=== PATIENT | male | born 1965 | race Caucasian/White ===

== ENCOUNTER 2019-06-12 01:09 | Inpatient (IN) | payer OTHER ==
[~2019-06-12] VITALS: Ht 170.2 cm; Wt 87.5 kg
[2019-06-12 01:23] VITALS: BP 142/97
[2019-06-12] MEDS ORDERED: CARDIZEM SR 60M60 MG PO (01:28)
[2019-06-12] MEDS ORDERED: MICROZIDE12.5 MG PO (01:28)
[2019-06-12] MEDS ORDERED: ASA81BEC PO (01:28)
[2019-06-12] MEDS ORDERED: FLOMAX0.4 MG PO (01:28)
[2019-06-12 01:30] LABS: ABSOLUTE EOSINOPHILS 0.2 thou/uL (0.0-0.7); ABSOLUTE LYMPHOCYTES 2.1 thou/uL (0.8-5.3); ABSOLUTE MONOCYTES 0.7 thou/uL (0.0-1.2); ABSOLUTE NEUTROPHILS 3.3 thou/uL (1.6-8.1); BASOPHILS 0.7 %; EOSINOPHILS 3.5 %; HEMATOCRIT 39.4 % (42.0-52.0); HEMOGLOBIN 13.6 gm/dL (14.0-18.0); MCH 30.4 pg (26.0-34.0); MCHC 34.5 g/dL (28.0-37.0); MCV 88.2 fL (80.0-100.0); MONOCYTES 11.4 %; MPV 8.1 fl. (7.2-11.1); NUCLEATED RBCS 0 /100WBC; PLATELET COUNT* 256 thou/uL (150-400); POLYS 51.4 %; RBC 4.47 mil/uL (4.50-6.00); RDW-CV 13.3 % (10.5-14.5); WBC 6.5 thou/uL (4.0-11.0)
[2019-06-12 01:39] LABS: CALCIUM 8.5 mg/dL (8.5-10.1); POTASSIUM 3.7 mmol/L (3.5-5.1)
[2019-06-12 01:43] LABS: APTT 26.1 Seconds (25.0-31.3); PROTIME 9.9 Seconds (9.20-11.50)
[2019-06-12 01:53] LABS: ALBUMIN 3.5 g/dL (3.4-5.0); CK-MB MASS 1.2 ng/mL (<0.5-3.6); MAGNESIUM 1.9 mg/dL (1.8-2.4); TOTAL BILIRUBIN 0.2 mg/dL (<0.1-1.0); TOTAL PROTEIN 7.2 g/dL (6.4-8.2)
[2019-06-12] MEDS ORDERED: COUMADIN 2.5MG2.5 M1 PO (02:31)
[2019-06-12] MEDS ORDERED: PRILOSEC OTC20 MG PO (02:31)
[2019-06-12 06:33] VITALS: BP 142/74
[2019-06-12 18:40] VITALS: BP 108/56
--- NOTE | 2019-06-12 19:05 | NUR ---
RECEIVED REPORT FROM HAN BOONE. PT ARRIVED TO TELE FLOOR AROUND 1900. PT SETTELED IN BED AND ORIENTED TO ROOM, BED AND CALL LIGHT. FAMILY AT BEDSIDE AND ABOUT TO GO GET PT SOMETHING TO EAT. PT REPORTING NECK PAIN - WILL GIVE IV PAIN MEDICATION SOON HE CAN HAVE IT. CUSTOMER RESOLUTION SPECIALIST PLACED. CALL LIGHT IS WITHIN REACH. FALL PRECAUTIONS IN PLACE.
[2019-06-12 20:00] VITALS: BP 134/80; BP 138/74
[2019-06-13] VITALS: BP 115/68
[2019-06-13 04:00] VITALS: BP 107/67
--- NOTE | 2019-06-13 04:31 | NUR ---
ASSUMED PT CARE AT APPROX 1930. PT IS AWAKE AND ORIENTED X4. VSS ON ROOM AIR. STARS COORDINATOR IN PLACE TRACING SR.PT DENIES CHEST PAIN BUT IS COMPLAINING OF NECK PAIN-PAIN MEDS GIVEN PER MAR. PT IS ABLE TO SLEEP MOST OF THE NIGHT. HIGH FALL PRECAUTIONS IN PLACE. CALL LIGHT WITHIN REACH. HOURLY ROUNDING DONE FOR PT SAFETY.
[2019-06-13 08:00] VITALS: BP 134/85
--- NOTE | 2019-06-13 10:25 | CON ---
[address] [address] CONSULTATION Name: RYANN IRVING Room: [place] [address] ADM IN M.R.#: [id number] Admission: 06/12/19 Attend Phys: Rhonda Cobb Discharge: Date of : 63 Report #: [id number] THIS REPORT FOR: //name// CC: Rhonda Nance DATE OF SERVICE: 06/12/2019 INDICATION: Syncope. HISTORY OF PRESENT ILLNESS: The patient is a very pleasant 54-year-old gentleman with recently diagnosed coronary artery disease. He reports percutaneous coronary intervention with stent placement x 2 in 2017. The patient had been having multiple syncopal episodes, prompting outside devops consultant to evaluate further with tilt table testing and event monitoring. Ultimately, he apparently had an ICD placed. This apparently became infected and was removed. The patient has not had a subsequent ICD placed. He does have a BioMonitor [address] Evaluation of the loop monitor shows several episodes of an irregular tachyarrhythmia lasting up to a minute and a half. The patient reports yesterday having an episode where he began to feel lightheaded, dizzy, blurry vision, and then passed out. He had some slight chest discomfort with this. At the time of my interview, he is stable. He reports having multiple syncopal episodes over the last several months. Cardiac enzymes are unremarkable. EKG shows a sinus rhythm without acute ST or T-wave abnormality. Telemetry monitoring shows sinus rhythm with occasional PACs. PAST MEDICAL HISTORY: 1. Paroxysmal atrial fibrillation per the patient's report. 2. Coronary artery disease. 3. Hypertension. 4. Remote transient ischemic attack. 5. GERD. 6. Cardiac stents placed as outlined above. 7. ICD placement with subsequent removal for infection. FAMILY HISTORY: Noncontributory. SOCIAL HISTORY: The patient denies use of tobacco or alcohol. CURRENT MEDICATIONS: Aspirin 81 mg daily, metoprolol 25 mg daily, Flomax 0.4 mg at bedtime, and warfarin as directed for INR. PHYSICAL EXAMINATION: [place] [address] CONSULTATION Name: RYANN IRVING Room: [address] IN [facility]#: [id number] Admission: 06/12/19 Attend Phys: Rhonda Cobb Discharge: Date of : 63 Report #: [id number] VITAL SIGNS: Stable. Blood pressure is 134/73, pulse is 70 and regular. GENERAL: This is a pleasant gentleman in no distress. Mood and affect appropriate. HEENT: Extraocular muscles intact. Mucous membranes are moist. NECK: Shows no jugular venous distention. There are no carotid bruits. CHEST: Reveals clear lung temple without wheezes or rales. CARDIOVASCULAR: Reveals a regular rhythm with normal S1 and S2. I do not appreciate gallop or murmur. ABDOMEN: Reveals normal bowel sounds. The abdomen is soft and nontender. EXTREMITIES: Shows no edema. Peripheral pulses are 2+ and palpable. SKIN: Warm and dry. LABORATORY DATA: A 12-lead EKG shows sinus rhythm without acute ST or T-wave abnormality. Labs are reviewed. Electrolytes are within normal limits. Troponins are less than 0.06 on 3 separate occasions. NT-proBNP is 70. Chest x-ray shows no acute cardiopulmonary abnormality. IMPRESSION AND RECOMMENDATIONS: 1. Syncope, likely due to cardiac dysrhythmia. We will admit for telemetry monitoring and further cardiac workup including echocardiogram. The patient had had an ICD in place in the past. He may be a candidate for replacement of ICD. We will confer with electrophysiology. 2. Coronary artery disease, presently appears stable. His enzymes are unremarkable. He is not having any symptoms to suggest angina. 3. Possible dyslipidemia. We will check fasting lipid profile. 4. History of hypertension. Blood pressure appears adequately controlled on metoprolol alone at this time. We will follow. <ELECTRONICALLY SIGNED> By: Edwin Nair MD, FACC 06/13/19 1025 1348 [id number] Nair MD, FACC /nt
--- NOTE | 2019-06-13 12:28 | EKG ---
[place] [address] ELECTROCARDIOGRAM REPORT Name: RYANN IRVING Room: [place] [address] ADM IN M.R.#: [id number] Admission: 06/12/19 Attend Phys: Rhonda Cobb Discharge: Date of : 63 Report #: [id number] THIS REPORT FOR: //name// [facility] ED Test Date: 2019-06-12 Test Time: 01:11:41 Pat Name: RYANN IRVING Department: Room: [facility] Gender: M Sports Management Professor: : 1965 Requested By: Chris Marin Order Number: [id number] MD: Gualberto Munguia Measurements Intervals [place] Rate: 81 P: 76 WV: 173 QRS: 59 QRSD: 100 T: 41 QT: 381 QTc: 443 Interpretive Statements Sinus rhythm Atrial premature complex RSR' in V1 or V2, right VCD No previous ECG available for comparison Electronically Signed On 06-13-2019 12:27:37 BAKED GOODS STOCK CLERK by Gualberto Munguia [email or web address] <ELECTRONICALLY SIGNED> By: Gualberto Munguia MD, [facility] 06/13/19 1227 0 0 Gualberto Munguia MD, FACC /EPI
[2019-06-13 12:33] VITALS: BP 127/84
--- NOTE | 2019-06-13 14:09 | NUR ---
MET WITH PT TO DISCUSS HOME SITUATION/DC PLANNING. PT LIVES WITH FRIEND, WORKS AND IS INDEPENDENT AND ACTIVE. HE USES NO EQUIPMENT. FAXED COPY OF MEDICAID CARD TO [employer], IT HAS LAPSED. HAVE ASKED [facility] TO SEE PT. HIS PRIMARY INSURANCE IS PENDING A CARD BEING BROUGHT IN BY FRIEND. PT DENIES NEEDS
--- NOTE | 2019-06-13 15:10 | 2DMMODE ---
[place] [address] 2 D/M-MODE ECHOCARDIOGRAM Name: RYANN IRVING Room: [place] [address] ADM IN M.R.#: [id number] Admission: 06/12/19 Attend Phys: Rhonda freire Sa Discharge: Date of : 63 Date of Service: 06/13/19 1510 Report #: [id number] THIS REPORT FOR: //name// APPROVED REPORT Study performed: 06/13/2019 11:20:18 EXAM: Comprehensive 2D, Doppler, and color-flow Echocardiogram Patient Location: Bedside BSA: 1.91 HR: 77 bpm BP: 107/67 mmHg Other Information Study Quality: Good Indications Arrhythmia Chest Pain Left Ventricle The left ventricle is normal size. There is normal LV segmental wall motion. There is normal left ventricular wall thickness. Left ventricular systolic function is normal. LVEF is 55-60%. The left ventricular diastolic function is normal. Right Ventricle The right ventricle is normal size. The right ventricular systolic function is normal. Atria The left atrium size is normal. The right atrium size is normal. Aortic Valve The aortic valve is normal in structure. No aortic regurgitation is present. There is no aortic valvular stenosis. Mitral Valve The mitral valve is normal in structure. Trace mitral regurgitation. No evidence of mitral valve stenosis. Tricuspid Valve The tricuspid valve is normal in structure[place] [address] 2 D/M-MODE ECHOCARDIOGRAM Name: RYANN IRVING Room: [address] IN M.R.#: [id number] Admission: 06/12/19 Attend Phys: Rhonda freire Sa Discharge: Date of : 63 Date of Service: 06/13/191509 Report #: [id number] regurgitation. No pulmonary hypertension. Pulmonic Valve The pulmonary valve is normal in structure. Mild pulmonic regurgitation. Great Vessels The aortic root is normal in size. IVC is normal in size and collapses >50% with inspiration. Pericardium There is no pericardial effusion. <Conclusion> The left ventricle is normal size. There is normal left ventricular wall thickness. Left ventricular systolic function is normal. LVEF is 55-60%. The left ventricular diastolic function is normal. Trace mitral regurgitation. Trace tricuspid regurgitation. No pulmonary hypertension. Mild pulmonic regurgitation. IVC is normal in size and collapses >50% with inspiration. <ELECTRONICALLY SIGNED> By: Edwin Nair MD, [facility] 06/13/191509 09 Edwin Nair MD, FACC /INF
[2019-06-13 16:00] VITALS: BP 118/74
--- NOTE | 2019-06-13 19:02 | NUR ---
ASSUMED PT CARE AT 0730. ASSESSMENT COMPLETED CHARTED. ABLE TO MAKE NEEDS KNOWN. UP WITH SBA. IV FLUIDS RUNNING PER EMAR. C/O NECK PAIN AND GAVE PRN PAIN MEDICATION. PT RESTING IN BED MOST OF THE DAY. WILL CONTINUE TO MONITOR.
[2019-06-13 20:00] VITALS: BP 143/97
[2019-06-14 00:38] VITALS: BP 116/67
[2019-06-14 04:00] VITALS: BP 131/63
--- NOTE | 2019-06-14 05:05 | NUR ---
ASSUMED PT CARE AT APPROX 1930. PT IS AWAKE AND ORIENTED X4. VSS ON ROOM AIR. ANESTHESIOLOGY PHYSICIAN ASSISTANT IN PLACE TRACING SR/SA w/ OCCASIONAL PACs. ASSESSMENT DONE AND CHARTED. PT C/O NECK PAIN RELIEVED BY PAIN MEDS GIVEN PER AUG. PT IS ABLE TO SLEEP MOST OF THE NIGHT. CALL LIGHT WITHIN REACH. HIGH FALL PRECAUTIONS IN PLACE. HOURLY ROUNDING DONE FOR PT SAFETY.
[2019-06-14 06:18] LABS: CHOLESTEROL 216 mg/dL (<200); HDL CHOLESTEROL 43 mg/dL (>40); LDL CHOLESTEROL 156 mg/dL (<100); TRIGLYCERIDE 87 mg/dL (<150); VLDL 17 mg/dL (<40)
[2019-06-14 06:19] LABS: SERUM ASSESSMENT Clear
[2019-06-14 08:00] VITALS: BP 134/95
[2019-06-14 13:00] VITALS: BP 134/95
[2019-06-14 14:49] VITALS: BP 134/95
[2019-06-14 16:04] LABS: AMP/METHAMP Negative (Negative); BARBITURATES Negative (Negative); BENZODIAZEPINES Negative (Negative); COCAINE Negative (Negative); METHADONE Negative (Negative); OPIATES POSITIVE (Negative); PCP Negative (Negative); THC Negative (Negative)
[2019-06-14 16:31] VITALS: BP 142/79
--- NOTE | 2019-06-14 18:26 | NUR ---
ASSUMED PT CARE AT 0730. ASSESSMENT COMPLETED CHARTED. ABLE TO MAKE NEEDS KNOWN. C/O NECK PAIN AND GAVE PRN PAIN MEDICATION PER EMAR. UP AD AUBREE IN ROOM. RESTING IN BED MOST OF THE DAY. DISCHARGE APPROVED. DISCHARGE PAPERWORK WENT OVER WITH PT, TOOK HEART MONITOR AND IV OUT. HAD QUESTIONS ABOUT IF HE PASSED OUT AGAIN, DR. SAWANT TALKED TO PT BEFORE HE LEFT. PT LEFT WITH FRIEND AND MATHEMATICS FACULTY MEMBER AROUND 1827 TO FRIENDS CAR. NO FURTHER COMMENTS, QUESTIONS OR CONCERNS.
== END 2019-06-14 18:40 | disposition home or self-care (01) | DRG 310 ==
LOC: M.ERS 01:09 → M.2W 03:38 → M.TBA-ER 03:38 → M.2W 19:00
PROVIDERS: Family Medicine; Internal Medicine; Internal Medicine Cardiovascular Disease; ADMIT Family Medicine
DX: I48.0 Paroxysmal atrial fibrillation (principal); I25.10 Atherosclerotic heart disease of native coronary artery without angina pectoris; I10 Essential (primary) hypertension; K21.9 Gastro-esophageal reflux disease without esophagitis; S13.4XXA Sprain of ligaments of cervical spine, initial encounter; S16.1XXA Strain of muscle, fascia and tendon at neck level, initial encounter; N40.1 Benign prostatic hyperplasia with lower urinary tract symptoms; Z86.73 Personal history of transient ischemic attack (TIA), and cerebral infarction without residual deficits; Z95.5 Presence of coronary angioplasty implant and graft; Z95.0 Presence of cardiac pacemaker; X58.XXXA Exposure to other specified factors, initial encounter; Y93.89 Activity, other specified; Y92.89 Other specified places as the place of occurrence of the external cause; Y99.8 Other external cause status

== ENCOUNTER 2019-06-16 13:23 | Emergency (ER) | payer OTHER ==
[~2019-06-16] VITALS: Ht 172.7 cm; Wt 83.9 kg
[~2019-06-16 13:23] MED LIST: ASA81BEC PO; CARDIZEM SR 60M60 MG PO; COUMADIN 2.5MG2.5 M1 PO; FLOMAX0.4 MG PO; MICROZIDE12.5 MG PO; PRILOSEC OTC20 MG PO
[2019-06-16 14:44] LABS: ABSOLUTE BASOPHILS 0.1 thou/uL (0.0-0.2); ABSOLUTE EOSINOPHILS 0.2 thou/uL (0.0-0.7); ABSOLUTE LYMPHOCYTES 1.6 thou/uL (0.8-5.3); ABSOLUTE MONOCYTES 0.7 thou/uL (0.0-1.2); ABSOLUTE NEUTROPHILS 4.8 thou/uL (1.6-8.1); BASOPHILS 1.1 %; EOSINOPHILS 2.1 %; HEMATOCRIT 42.5 % (42.0-52.0); HEMOGLOBIN 14.5 gm/dL (14.0-18.0); LYMPHOCYTES 21.8 %; MCH 30.2 pg (26.0-34.0); MCHC 34.1 g/dL (28.0-37.0); MCV 88.4 fL (80.0-100.0); MONOCYTES 9.7 %; MPV 8.3 fl. (7.2-11.1); NUCLEATED RBCS 0 /100WBC; PLATELET COUNT* 302 thou/uL (150-400); POLYS 65.3 %; RBC 4.81 mil/uL (4.50-6.00); RDW-CV 13.1 % (10.5-14.5); WBC 7.3 thou/uL (4.0-11.0)
[2019-06-16 14:54] LABS: CALCIUM 8.6 mg/dL (8.5-10.1)
[2019-06-16 14:55] LABS: APTT 27.6 Seconds (25.0-31.3); PROTIME 10.3 Seconds (9.20-11.50)
[2019-06-16 14:59] LABS: ALBUMIN 3.9 g/dL (3.4-5.0); TOTAL BILIRUBIN 0.3 mg/dL (<0.1-1.0)
[2019-06-16 15:15] VITALS: BP 123/79
--- NOTE | 2019-06-17 15:16 | EKG ---
[place] [address] ELECTROCARDIOGRAM REPORT Name: RYANN IRVING JR Room: [facility]#: [id number] Admission: 06/16/19 Attend Phys: Discharge: 06/16/19 Date of : 63 Report #: [id number] THIS REPORT FOR: //name// [facility] ED Test Date: 2019-06-16 Test Time: 13:31:49 Pat Name: RYANN IRVING Department: Room: Gender: M Real Estate Developer: JEN : 1965 Requested By: Chris Marin Order Number: [id number] MD: Meek Whittaker Measurements Intervals [place] Rate: 74 P: 51 [place]: 188 QRS: 18 QRSD: 85 T: 59 QT: 386 QTc: 429 Interpretive Statements Sinus rhythm Left atrial enlargement RSR' in V1 or V2, right VCD or RVH Compared to ECG 06/12/2019 01:11:41 Atrial abnormality now present Atrial premature complex(es) no longer present Electronically Signed On 06-17-2019 15:15:52 LEADERSHIP PROGRAM INTERN by Meek Whittaker [email or web address] <ELECTRONICALLY SIGNED> By: Meek Whittaker MD, [facility] 06/17/19 1515 1331 1331 Meek Whittaker MD, [facility] /EPI
== END 2019-06-16 15:18 | disposition home or self-care (01) ==
LOC: M.ERS 13:23
PROVIDERS: Family Medicine
DX: R55 Syncope and collapse (principal); I10 Essential (primary) hypertension; I25.10 Atherosclerotic heart disease of native coronary artery without angina pectoris; K21.9 Gastro-esophageal reflux disease without esophagitis; I48.91 Unspecified atrial fibrillation; Z86.73 Personal history of transient ischemic attack (TIA), and cerebral infarction without residual deficits

== ENCOUNTER 2019-06-29 00:20 | Emergency (ER) | payer OTHER ==
[~2019-06-29] VITALS: Ht 172.7 cm; Wt 83.9 kg
[2019-06-29] MEDS ORDERED: LIPITOR40 MG PO (00:50)
[2019-06-29] MEDS ORDERED: PACERONE200 MG PO (00:50)
[2019-06-29 01:25] LABS: ABSOLUTE EOSINOPHILS 0.2 thou/uL (0.0-0.7); ABSOLUTE MONOCYTES 0.7 thou/uL (0.0-1.2); ABSOLUTE NEUTROPHILS 4.4 thou/uL (1.6-8.1); BASOPHILS 0.6 %; EOSINOPHILS 2.5 %; HEMATOCRIT 41.9 % (42.0-52.0); HEMOGLOBIN 14.3 gm/dL (14.0-18.0); LYMPHOCYTES 27.1 %; MCH 30.1 pg (26.0-34.0); MCHC 34.1 g/dL (28.0-37.0); MCV 88.4 fL (80.0-100.0); MONOCYTES 9.6 %; MPV 8.8 fl. (7.2-11.1); NUCLEATED RBCS 0 /100WBC; PLATELET COUNT* 305 thou/uL (150-400); POLYS 60.2 %; RBC 4.74 mil/uL (4.50-6.00); RDW-CV 13.3 % (10.5-14.5); WBC 7.3 thou/uL (4.0-11.0)
[2019-06-29] MEDS ORDERED: COUMADIN 5 MG TA5 M1 PO (01:28)
[2019-06-29 01:44] LABS: CREATININE 1.2 mg/dL (0.6-1.3)
[2019-06-29 01:56] LABS: TOTAL BILIRUBIN 0.2 mg/dL (<0.1-1.0); TOTAL PROTEIN 7.5 g/dL (6.4-8.2)
[2019-06-29 02:04] LABS: APTT 28.5 Seconds (25.0-31.3); PROTIME 10.1 Seconds (9.20-11.50)
[2019-06-29 03:30] VITALS: BP 159/93
--- NOTE | 2019-07-01 14:11 | EKG ---
[place] [address] ELECTROCARDIOGRAM REPORT Name: RYANN IRVING Room: [facility]#: [id number] Admission: 06/29/19 Attend Phys: Discharge: 06/29/19 Date of : 63 Report #: [id number] THIS REPORT FOR: //name// [facility] ED Test Date: 2019-06-29 Test Time: 00:23:46 Pat Name: RYANN IRVING Department: Room: Gender: M Agile Qa Tester: CASSY : 1965 Requested By: Virgie Davison Order Number: [id number] MD: Meek Whittaker Measurements Intervals [place] Rate: 71 P: 68 SD: 194 QRS: 10 QRSD: 101 T: 55 QT: 390 QTc: 424 Interpretive Statements Sinus rhythm Probable left atrial enlargement RSR' in V1 or V2, right VCD or RVH Baseline wander in lead(s) V3 Compared to ECG 06/16/2019 13:31:49 No significant changes Electronically Signed On 07-01-2019 14:10:27 BLACKTOP SPREADER by Meek Whittaker [email or web address] <ELECTRONICALLY SIGNED> By: Meek Whittaker MD, [facility] 07/01/19 1410 0023 0023 Meek Whittaker MD, [facility] /EPI
== END 2019-06-29 03:30 | disposition home or self-care (01) ==
LOC: M.ERS 00:20
PROVIDERS: Personal Emergency Response Attendant
DX: I49.9 Cardiac arrhythmia, unspecified (principal); F41.9 Anxiety disorder, unspecified; R11.2 Nausea with vomiting, unspecified; I10 Essential (primary) hypertension; I48.91 Unspecified atrial fibrillation; K21.9 Gastro-esophageal reflux disease without esophagitis; I25.10 Atherosclerotic heart disease of native coronary artery without angina pectoris; Z86.73 Personal history of transient ischemic attack (TIA), and cerebral infarction without residual deficits; Z95.0 Presence of cardiac pacemaker

== ENCOUNTER 2019-10-13 17:01 | Inpatient (IN) | payer OTHER ==
[~2019-10-13] VITALS: Ht 172.7 cm; Wt 89.4 kg
[~2019-10-13 17:01] MED LIST changes: +COUMADIN 5 MG TA5 M1 PO; +LIPITOR40 MG PO; +PACERONE200 MG PO
[2019-10-13 17:02] VITALS: BP 182/117
[2019-10-13] MEDS ORDERED: LIPITOR 20 MG T20 M1 PO (17:10)
[2019-10-13] MEDS ORDERED: OMEPRAZOLE40 MG PO (17:11)
[2019-10-13] MEDS ORDERED: ASA81BEC PO (17:11)
[2019-10-13 17:43] LABS: ABSOLUTE EOSINOPHILS 0.2 thou/uL (0.0-0.7); ABSOLUTE LYMPHOCYTES 1.8 thou/uL (0.8-5.3); ABSOLUTE MONOCYTES 0.6 thou/uL (0.0-1.2); ABSOLUTE NEUTROPHILS 2.7 thou/uL (1.6-8.1); BASOPHILS 0.6 %; EOSINOPHILS 3.1 %; HEMATOCRIT 41.2 % (42.0-52.0); HEMOGLOBIN 13.9 gm/dL (14.0-18.0); LYMPHOCYTES 34.2 %; MCH 30.8 pg (26.0-34.0); MCHC 33.7 g/dL (28.0-37.0); MCV 91.4 fL (80.0-100.0); MONOCYTES 11.7 %; MPV 8.4 fl. (7.2-11.1); NUCLEATED RBCS 0 /100WBC; PLATELET COUNT* 234 thou/uL (150-400); POLYS 50.4 %; RBC 4.51 mil/uL (4.50-6.00); WBC 5.4 thou/uL (4.0-11.0)
[2019-10-13 17:59] LABS: CALCIUM 7.9 mg/dL (8.5-10.1); CREATININE 0.8 mg/dL (0.6-1.3)
[2019-10-13 18:00] LABS: ALBUMIN 3.5 g/dL (3.4-5.0); MAGNESIUM 1.7 mg/dL (1.8-2.4); TOTAL BILIRUBIN 0.3 mg/dL (<0.1-1.0); TOTAL PROTEIN 6.9 g/dL (6.4-8.2)
[2019-10-13 18:16] LABS: PROTIME 10.4 Seconds (9.20-11.50)
[2019-10-13 20:30] VITALS: BP 146/89
[2019-10-13 20:31] VITALS: BP 159/94
[2019-10-13] MEDS ORDERED: FLUDROCORTISON0.1 MG PO (21:03)
[2019-10-14] VITALS (16 sets, daily range): BP systolic 93–134; BP diastolic 55–84
--- NOTE | 2019-10-14 05:54 | NUR ---
PT ADMITTED TO FLOOR AT 2014. PT HAD REPORTED PAIN OF 8/10 ON ASSESSMENT, WITH PARTIAL RELIEF WITH PRN PAIN MEDICATIONS. PAIN MEDICATIONS REQUIRED Q4H TO CONTROL PAIN. ASSESSMENTS COMPLETED AT BEDSIDE, MEDICATIONS ADMINISTERED PER MAR. HOURLY ROUNDING FOR SAFETY, CURRENTLY IN BED WITH BED ALARM ON AND CALL LIGHT WITH REACH.
--- NOTE | 2019-10-14 10:41 | EKG ---
[place] [address] ELECTROCARDIOGRAM REPORT Name: RYANN IRVING Room: [address] ADM IN .R.#: [id number] Admission: 10/13/19 Attend Phys: Juan F Hightower, Discharge: Date of : 63 Date of Service: 10/13/19 1706 Report #: [id number] THIS REPORT FOR: //name// [facility] ED Test Date: 2019-10-13 Test Time: 17:06:47 Pat Name: RYANN IRVING Department: Room: [facility] Gender: M Captain/Airline Pilot: VIGNESH : 1965 Requested By: Shailesh Flowers Order Number: [id number] MD: Meek Whittaker Measurements Intervals [place] Rate: 63 P: 37 DC: 176 QRS: 29 QRSD: 105 T: 30 QT: 411 QTc: 421 Interpretive Statements Sinus rhythm RSR' in V1 or V2, right VCD or RVH Baseline wander in lead(s) V1 Compared to ECG 06/29/2019 00:23:46 No significant changes Electronically Signed On 10-14-2019 10:39:19 CDT by Meek Whittaker [email or web address] <ELECTRONICALLY SIGNED> By: Meek Whittaker MD, FAC 10/14/19 1039 1706 1706 Meek Whittaker MD, FAC /EPI
[2019-10-14] MEDS ORDERED: PACERONE200 MG PO (11:10)
[2019-10-14] MEDS ORDERED: COUMADIN 5 MG TA5 M1 PO (11:19)
[2019-10-14] MEDS ORDERED: ADVIL200 M3 PO (11:23)
[2019-10-14] MEDS ORDERED: NORCO 10-325 T1 EACH PO (13:04)
--- NOTE | 2019-10-14 15:44 | CON ---
[address] [address] CONSULTATION Name: MARIA FERNANDARYANN Riley Room: [address] IN .R.#: [id number] Admission: 10/13/19 Attend Phys: Juan F Hightower MD Discharge: Date of : 63 Report #: [id number] THIS REPORT FOR: //name// cc: PALMIRA Childers family physician/PCP PALMIRA - Liseth family physician/PCP ~ THIS REPORT FOR: //name// CC: PALMIRA physician/PCP Juan F Hightower DATE OF SERVICE: 10/14/2019 CARDIOLOGY CONSULTATION HISTORY OF PRESENT ILLNESS: The patient is a 54-year-old single white male who I was asked to see in the hospital today after he complained of chest pain. The patient has an extensive and complicated past medical history. He has had many years of syncope. He apparently had a loop recorder placed in [place], [place] 3 years ago. He states he had a tilt table test at that time. He has no history of coronary artery disease, although he has had previous stress test. There is no history of seizures. He actually saw my partner, Dr. Quiñonez in the past. He was referred to Dr. Barber in the [facility]. Recently, he has been having intermittent chest pain. Describes a sharp pain in his chest. It is not related to exertion or meals. He denied any fever, cough or bleeding. He does become diaphoretic and nauseated. Denies any shortness of breath and edema. Two days ago, he was at home when he had a brief syncopal spell lasted about 2 minutes. Yesterday, he again had a syncopal spell at home. He was taken to [facility] and transferred to [place] yesterday by ambulance. I was asked to see him for further evaluation and treatment. PAST MEDICAL HISTORY: He has had lithotripsy for kidney stones. He has a history of hypertension, hyperlipidemia, and has a history of paroxysmal atrial fibrillation, although apparently has never been cardioverted in the past. MEDICATIONS: Include aspirin, diltiazem, HCTZ, Prilosec, Flomax, warfarin, amiodarone, and Lipitor. ALLERGIES: He has no known drug allergies. FAMILY HISTORY: His father had heart attack. SOCIAL HISTORY: He is single, never been and lives with a sister in [place], [place]. Works on a farm. No smoking or alcohol abuse. No illicit drug use. REVIEW OF SYSTEMS: He has had no history of stroke. [place] [address] CONSULTATION Name: MARIA FERNANDARYANN Osvaldo MIR Room: [address] IN [facility].#: [id number] Admission: 10/13/19 Attend Phys: Juan F Hightower MD Discharge: Date of : 63 Report #: [id number] past. No history of asthma, liver disease, kidney disease, cancer, psychiatric illness or chronic skin condition. PHYSICAL EXAMINATION: GENERAL: Revealed a middle-aged female, appeared in no distress. VITAL SIGNS: He has a blood pressure of 120/70, pulse of 60, and he is afebrile. HEENT: He was anicteric. Conjunctivae pink. Mucous membranes moist. NECK: Veins nondistended. No carotid bruits. Neck supple. CHEST: Clear to auscultation. CARDIOVASCULAR: Regular rate and rhythm. ABDOMEN: Soft. EXTREMITIES: Had no edema. SKIN: Warm and dry. NEUROLOGIC: Nonfocal. RADIOLOGICAL DATA: His ECG on admission showed a sinus rhythm, incomplete right bundle branch block, no acute changes. His workup, he had an echocardiogram in June of this year that showed normal heart size with an ejection fraction of 60%. Yesterday in the Emergency Room, he had a head CT scan without contrast that showed no acute abnormality. Chest x-ray on admission yesterday showed normal heart size, clear lung temple. LABORATORY WORK: Sodium 140, potassium 4.0, and creatinine 0.8. His liver function studies were normal. Troponin 0.06. BNP 51. In June, cholesterol 216, triglyceride 87, HDL 43, and LDL 156. His white blood cell count 5.4 and hemoglobin 13.9. His INR yesterday was 1.0. IMPRESSION AND RECOMMENDATIONS: 1. Chest pain. Recommend cardiac catheterization. 2. History of atrial fibrillation. I would hold warfarin at this time. The patient is on amiodarone. 3. Syncope. Possible vasovagal syncope. The patient has a loop recorder in place. No arrhythmias noted. 4. Hypertension. The patient is on a calcium barbra and diuretic. 5. Hyperlipidemia. The patient is on a statin drug. 6. Previous history of kidney stones. 7. History of transient ischemic attack. Possibly related to atrial fibrillation. <ELECTRONICALLY SIGNED> By: Meek Whittaker MD, FACC 10/14/19 1544 0840 0915Daleon Whittaker MD, FACC /nt
--- NOTE | 2019-10-14 16:00 | NUR ---
PATIENT NPO THIS AM FOR CARDIOLOGY. CARDIAC CATH DONE THIS AFTERNOON. VITALS STABLE CHARTED. PATIENT GIVEN NORCO X 1 AND MORPHINE X 1. RIGHT WRIST SITE REMAINS DRY, NO HEMATOMA OR BLEEDING NOTED. PATIENT REMAINED WITH GOOD CAP REFILL. PATIENT GIVEN DISCHARGED ORDERS, VERBALIZES UNDERSTANDING OF PAPERWORK AND SCRIPTS. PATIENT TAKEN OUT VIA WHEELCHAIR WITH ALL BELONGINGS.
--- NOTE | 2019-10-14 16:20 | CARD ---
[address] [address] CARDIAC CATH REPORT Name: RYANN IRVING Osvaldo MIR Room: [address]#: [id number] Admission: 10/13/19 Attend Phys: Juan F Hightower MD Discharge: 10/14/19 Date of : 63 Report #: [id number] THIS REPORT FOR: //name// cc: PALMIRA Whitman No family physician/PCP PALMIRA Childers family physician/PCP ~ APPROVED REPORT Study performed: 10/14/2019 08:42:40 Patient Details Patient Status: In-Patient Room #: The patient is a 54 year-old male Event Personnel Meek Whittaker Outside Plant Supervisor, Wesley Olivera RN Biomaterials Engineer, Michael Lucas RTR Scrub, Jo-Ann Delgado RTR Monitor Procedures Performed cardiac cathArt Access - R femoral artery, Left Heart Cath w/or w/o Coronaries LHC, Hemostasis with Hemoband Indication Syncope, Chest pain Risk Factors Hypertension Admission/Lab Medications/Medications given during procedure Oxygen Nasal cannula 2 l per min, Lidocaine Subcut 6 ml, Nitroglycerin IA 400 mcg, Verapamil IA 5 mg, Heparin IV 4400 units Procedure Narrative The patient was brought electively to the Cardiac Catheterization Laboratory and was prepped and draped in a sterile manner. The right wrist was infiltrated with 2% Lidocaine subcutaneous anesthesia. A 6F sheath was inserted into the right radial artery. Coronary angiography was performed using coronary diagnostic catheters. The right coronary system was accessed and visualized with a 6F JR4 catheter. The left coronary system was accessed and visualized with a 6F JL4 catheter. The left ventricle was accessed and visualized with a 6F Pigtail catheter. Left ventricular/Aortic Valve gradient assessed via catheter pullback. Left ventriculogram was performed in [place] projection. Closure device was deployed with a 6 [place] 24 [place] [address] CARDIAC CATH REPORT Name: RYANN IRVING JR Room: [address]#: [id number] Admission: 10/13/19 Attend Phys: Juan F Hightower MD Discharge: 10/14/19 Date of : 63 Report #: [id number] [facility]. The patient tolerated the procedure well and there were no complications associated with the procedure. There was no hematoma. Intraoperative Conscious Sedation Sedation start time: 09:52 Case end Time: 10:16 Fentanyl 25 mcg Versed 2 mg Fluoro Time: 3.9 minutes Dose: DAP 27646 cGycm2 746 mGy Contrast Type and Amount: Visipaque 100 ml Coronary Angiography The patient's coronary anatomy is left dominant. [place] Artery Percent Stenosis Left Main: 0 % Prox LAD: 0 % Mid/Distal LAD: 30 % Circumflex: 0 % RCA: 0 % Ramus: 0 % Left Ventriculography The left ventricular ejection fraction is estimated to be 60-65%. Left ventricular wall motion abnormalities are not present. There is no mitral insufficiency. Hemodynamics The aortic pressure is 123/79 mmHg with a mean of 99 mmHg. The left ventricular pressure is 123/3 mmHg with a mean of mmHg. The left ventricular end diastolic pressure is 17 mmHg. There was no gradient across the aortic valve upon pullback. Pullback from the left ventricle to the aorta revealed no gradient across the aortic valve. Conclusion 1. no significant cad noted 2. LVEF 60-65% 3. suspect noncardiac chest pain Recommendations Aggressive Medical Therapy <ELECTRONICALLY SIGNED> By: Meek Whittaker MD, FACC 10/14/19 1618 1618 1618Daleon Whittaker MD, FACC /INF
== END 2019-10-14 16:00 | disposition home or self-care (01) | DRG 206 ==
LOC: M.ERS 17:01 → M.2W 18:40 → M.TBA-ER 18:40 → M.2W 19:34
PROVIDERS: Emergency Medicine Emergency Medical Services; ADMIT Internal Medicine
PROC: B211YZZ Fluoroscopy of Multiple Coronary Arteries using Other Contrast (ICD-10-PCS; principal; 2019-10-14)
PROC: B215YZZ Fluoroscopy of Left Heart using Other Contrast (ICD-10-PCS; principal; 2019-10-14)
PROC: 4A023N7 Measurement of Cardiac Sampling and Pressure, Left Heart, Percutaneous Approach (ICD-10-PCS; principal; 2019-10-14)
DX: M94.0 Chondrocostal junction syndrome [Tietze] (principal); R55 Syncope and collapse; I10 Essential (primary) hypertension; K21.9 Gastro-esophageal reflux disease without esophagitis; I25.10 Atherosclerotic heart disease of native coronary artery without angina pectoris; E78.5 Hyperlipidemia, unspecified; F41.9 Anxiety disorder, unspecified; I48.0 Paroxysmal atrial fibrillation; Z95.0 Presence of cardiac pacemaker; Z88.8 Allergy status to other drugs, medicaments and biological substances; Z79.82 Long term (current) use of aspirin; I25.2 Old myocardial infarction; Z79.01 Long term (current) use of anticoagulants; Z86.73 Personal history of transient ischemic attack (TIA), and cerebral infarction without residual deficits

== ENCOUNTER 2020-06-22 23:31 | Emergency (ER) | payer OTHER ==
[~2020-06-22] VITALS: Ht 172.7 cm; Wt 83.9 kg
[~2020-06-22 23:31] MED LIST changes: +ADVIL200 M3 PO; +FLUDROCORTISON0.1 MG PO; +LIPITOR 20 MG T20 M1 PO; +NORCO 10-325 T1 EACH PO; +OMEPRAZOLE40 MG PO
[2020-06-23 00:37] LABS: ABSOLUTE BASOPHILS 0.1 thou/uL (0.0-0.2); ABSOLUTE EOSINOPHILS 0.1 thou/uL (0.0-0.7); ABSOLUTE LYMPHOCYTES 1.8 thou/uL (0.8-5.3); ABSOLUTE MONOCYTES 0.6 thou/uL (0.0-1.2); ABSOLUTE NEUTROPHILS 3.8 thou/uL (1.6-8.1); EOSINOPHILS 2.2 %; HEMOGLOBIN 14.8 gm/dL (14.0-18.0); MCH 30.1 pg (26.0-34.0); MCHC 33.6 g/dL (28.0-37.0); MCV 89.6 fL (80.0-100.0); MONOCYTES 9.7 %; MPV 7.8 fl. (7.2-11.1); NUCLEATED RBCS 0 /100WBC; PLATELET COUNT* 323 thou/uL (150-400); POLYS 59.1 %; RBC 4.91 mil/uL (4.50-6.00); RDW-CV 13.3 % (10.5-14.5); WBC 6.4 thou/uL (4.0-11.0)
[2020-06-23 00:39] LABS: CALCIUM 9.4 mg/dL (8.5-10.1)
[2020-06-23 00:43] LABS: ALBUMIN 3.9 g/dL (3.4-5.0); MAGNESIUM 2.2 mg/dL (1.8-2.4); TOTAL BILIRUBIN 0.5 mg/dL (<0.1-1.0); TOTAL PROTEIN 7.8 g/dL (6.4-8.2)
[2020-06-23] MEDS ORDERED: ZOFRAN ODT4 MG PO (00:51)
[2020-06-23 00:59] VITALS: BP 168/76
== END 2020-06-23 00:59 | disposition home or self-care (01) ==
LOC: M.ERS 23:31
PROVIDERS: Emergency Medicine
DX: R11.10 Vomiting, unspecified (principal); J02.9 Acute pharyngitis, unspecified; I10 Essential (primary) hypertension; I48.91 Unspecified atrial fibrillation; I25.10 Atherosclerotic heart disease of native coronary artery without angina pectoris; I25.2 Old myocardial infarction; K21.9 Gastro-esophageal reflux disease without esophagitis; Z95.0 Presence of cardiac pacemaker; Z79.899 Other long term (current) drug therapy; Z88.8 Allergy status to other drugs, medicaments and biological substances; Z20.828 Contact with and (suspected) exposure to other viral communicable diseases

== ENCOUNTER 2020-12-22 17:45 | Observation (INO) | payer OTHER ==
[~2020-12-22] VITALS: Ht 172.7 cm; Wt 86.4 kg
[~2020-12-22 17:45] MED LIST changes: +ZOFRAN ODT4 MG PO
[2020-12-22 21:47] VITALS: BP 107/66
[2020-12-23 00:41] VITALS: BP 119/91
[2020-12-23 05:16] VITALS: BP 95/64
[2020-12-23 06:15] LABS: APTT 25.7 Seconds (25.0-31.3); PROTIME 10.3 Seconds (9.20-11.50)
[2020-12-23 06:17] LABS: ANION GAP 5 mmol/L (7-16); BUN 16 mg/dL (7-18); CHLORIDE 106 mmol/L (98-107); CHOLESTEROL 189 mg/dL (<200); CO2 29 mmol/L (21-32); GLUCOSE 107 mg/dL (70-99); HDL CHOLESTEROL 42 mg/dL (>40); LDL CHOLESTEROL 132 mg/dL (<100); SODIUM 140 mmol/L (136-145); TC:HDL 4.5 Ratio (Not establshd); TRIGLYCERIDE 79 mg/dL (<150); VLDL 16 mg/dL (<40)
[2020-12-23 06:27] LABS: SERUM ASSESSMENT Clear
[2020-12-23 08:00] VITALS: BP 128/79
[2020-12-23 10:14] VITALS: BP 128/79
--- NOTE | 2020-12-23 16:28 | EKG ---
[place] [address] ELECTROCARDIOGRAM REPORT Name: RYANN IRVING Room: [address]#: [id number] Admission: 12/22/20 Attend Phys: Edwin Nair, Discharge: 12/23/20 Date of : 63 Date of Service: 12/22/202212 Report #: [id number] THIS REPORT FOR: //name// [facility] Test Date: 2020-12-22 Test Time: 22:13:05 Pat Name: RYANN IRVING Department: Room: [address] Gender: M Cushion Sewer: JGUEST2 : 1965 Requested By: Edwin Nair Order Number: [id number] [id number] MD: Gualberto Munguia Measurements Intervals [place] Rate: 60 P: 61 [place]: 188 QRS: 44 QRSD: 117 T: 34 QT: 416 QTc: 416 Interpretive Statements Sinus rhythm Incomplete right bundle branch block Baseline wander in lead(s) V2 Compared to ECG 10/13/2019 17:06:47 Incomplete right bundle-branch block persists Electronically Signed On 12-23-2020 16:27:52 CDT by Gualberto Munguia [email or web address] <ELECTRONICALLY SIGNED> By: Gualberto Munguia MD, [facility] 12/23/20 1627 12 221 Gualberto Munguia MD, FAC /EPI
--- NOTE | 2020-12-24 11:01 | H ---
[address] [address] HISTORY AND PHYSICAL Name: RYANN IRVING JR Room: [address] Krystal Hughes#: [id number] Admission: 12/22/20 Attend Phys: Edwin Nair MD Discharge: 12/23/20 Date of : 63 Report #: [id number] THIS REPORT FOR: cc: FAM - No family physician/PCP FAM - No family physician/PCP Edwin Nair MD [facility] ~ ADMIT DATE: 12/22/2020 INDICATION: Chest pain. 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 He had a syncopal episode, which is a recurrent problem with him and despite exhaustive workup, no etiology has been found. The patient had a CT head and CT neck at outside hospital, which showed no acute fracture or subdural hematoma. He was also complaining of chest pain at that time. Serial cardiac enzymes x 6 have been unremarkable. EKG shows sinus rhythm with no significant ST or T-wave abnormality. The pain was prolonged in nature and ongoing. Suspect gastrointestinal source. The patient has a history of cardiac catheterization last year that showed essentially normal coronary arteries. Left ventricular systolic function is normal. PAST MEDICAL HISTORY: 1. Paroxysmal atrial fibrillation per the patient's report. 2. Hypertension. 3. The patient reports remote history of TIA. 4. GERD. FAMILY HISTORY: Noncontributory. SOCIAL HISTORY: The patient denies use of tobacco or alcohol. HOME MEDICATIONS: Aspirin 81 mg daily, metoprolol 25 mg daily, Flomax 0.4 mg daily, warfarin as directed per INR. ALLERGIES: None documented. REVIEW OF SYSTEMS: As per HPI, otherwise unremarkable. PHYSICAL EXAMINATION: VITAL SIGNS: Blood pressure 128/79, pulse 71 and regular. GENERAL: This is a healthy-appearing gentleman who is in no distress. Mood and affect appropriate. HEENT: Head is normocephalic, atraumatic. Extraocular muscles intact. Muc[place] [address] HISTORY AND PHYSICAL Name: RYANN IRVING Osvaldo MIR [address]#: [id number] Admission: 12/22/20 Attend Phys: Edwin Nair MD Discharge: 12/23/20 Date of : 63 Report #: [id number] NECK: Shows no jugular venous distention. There are no carotid bruits. CHEST: Reveals clear lung temple. CARDIAC: Reveals a regular rhythm without gallop or murmur. ABDOMEN: Reveals normal bowel sounds. Abdomen is soft, nontender. EXTREMITIES: Shows normal pulses. SKIN: Warm and dry. LABORATORY DATA: Labs here are reviewed. Sodium 140, potassium 4.0, chloride 106, bicarbonate 29, BUN 16, creatinine 1.0, serum glucose 107. EGFR 77, total cholesterol 189, triglycerides 79, HDL 42, LDL 132. A 12-lead EKG shows sinus rhythm without significant ST or T-wave abnormality. Serial troponins are unremarkable. IMPRESSION AND RECOMMENDATIONS: 1. Atypical chest pain, possibly gastrointestinal in nature. I would recommend that he double his omeprazole for 1 week and then go back to the normal dosing. He has ruled out for myocardial infarction. 2. Hypertension. Blood pressure adequately controlled. 3. Dyslipidemia. To follow up with primary physician. 4. Reported history of paroxysmal atrial fibrillation, on warfarin. Follow up with primary physician. We will arrange followup with cardiology in one month. The patient is stable for discharge. <ELECTRONICALLY SIGNED> By: Edwin Nair MD, FACC 12/24/20 1101 [id number] Raza Nair MD, FACC /nt
--- NOTE | 2020-12-24 11:01 | D ---
[address] [address] DISCHARGE SUMMARY Name: RYANN IRVING JR Room: [address] Krystal Hughes#: [id number] Admission: 12/22/20 Attend Phys: Edwin Nair MD Discharge: 12/23/20 Date of : 63 Report #: [id number] THIS REPORT FOR: cc: FAM - No family physician/PCP FAM - No family physician/PCP Edwin Nair MD [facility] ~ DATE OF DISCHARGE: 12/23/2020 DISCHARGE DIAGNOSES: 1. Atypical chest pain, possible gastroesophageal reflux disease. 2. Hypertension. 3. Dyslipidemia. 4. Reported history of paroxysmal atrial fibrillation. PROCEDURES DURING HOSPITALIZATION: 1. Rule out myocardial infarction with serial enzymes and EKGs. 2. Telemetry monitoring. HOSPITAL COURSE: The patient was admitted in transfer from outside hospital with chest pain. The patient is ruled out for myocardial infarction both at the outside hospital and again here. Serial enzymes were unremarkable. EKG was unremarkable. The patient was comfortable overnight. The patient is being discharged uneventfully. DISCHARGE MEDICATIONS: Will include warfarin as directed, omeprazole 40 mg daily, ibuprofen as directed, atorvastatin 40 mg nightly, warfarin per INR per primary physician. DISPOSITION: The patient will be offered appointment of followup in 4 weeks. <ELECTRONICALLY SIGNED> By: Edwin Nair MD, [facility] 12/24/20 1101 [id number] Medical Centersandip Nair MD, ASHLEY /nt
== END 2020-12-23 12:10 | disposition home or self-care (01) ==
LOC: M.TBA 17:45 → EDSTATUS 18:41 → M.TBA 18:42 → M.2W 21:30
PROVIDERS: ADMIT Internal Medicine Cardiovascular Disease; ATTEND Internal Medicine Cardiovascular Disease
DX: R07.89 Other chest pain (principal); I10 Essential (primary) hypertension; E78.5 Hyperlipidemia, unspecified; I48.0 Paroxysmal atrial fibrillation; K21.9 Gastro-esophageal reflux disease without esophagitis; Z79.899 Other long term (current) drug therapy; Z79.01 Long term (current) use of anticoagulants; Z79.82 Long term (current) use of aspirin